=== PATIENT | female | born 1950 | race Caucasian/White ===

== ENCOUNTER 2022-06-15 09:32 | Day surgery (SDC) | payer MEDICARE, OTHER ==
[2022-06-15] VITALS (12 sets, daily range): BP systolic 106–143; BP diastolic 48–92; PULSE 65–79; TEMP 97.5–98.2
[~2022-06-15] VITALS: Ht 157.5 cm; Wt 95.3 kg
[~2022-06-15 09:32] MED LIST: ADVIL100 MG/5 M PO; ADVIL200 MG PO; ASPIRIN 32325 MG/TA1 PO; ASPIRIN 81M81 MG/TA2 PO; CALCIUM WITH D1 CTB PO; CALCIUM WITH VIT D PO; CARDI-OMEGA1000 MG PO; FISH OIL1000 MG PO; LASIX 20MG TABL20 MG PO; LASIX40 MG PO; METOPROLOL50 MG PO; MUCINEX D PO; MUCINEX DM 30 M1 TE1 PO; MULTIPLE VITAMI1 CAP PO; NITROQUICK0.4 MG SL; PHENTERMINE15 MG PO; PRAVASTATIN40 MG PO; PRILOSEC 20MG20 MG PO; RT SPIRIVA18 MCG IH; SPIRIVA INH IH; TOPROL XL 50MG50 MG PO; VITAMIN D1000 IU PO; VITAMIN D32000 IU PO
[2022-06-15] MEDS ORDERED: COREG12.5 MG PO (10:05)
[2022-06-15] MEDS ORDERED: TYLENOL 500MG500 MG PO (10:06)
[2022-06-15] MEDS ORDERED: ADVIL LIQUI-GE200 MG PO (10:07)
[2022-06-15] MEDS ORDERED: BIOTIN10000 MC1 PO (10:09)
[2022-06-15] MEDS ORDERED: ZETIA 10MG TAB10 MG PO (10:10)
[2022-06-15] MEDS ORDERED: ATARAX 25MG25 MG/TAB PO (10:10)
[2022-06-15] MEDS ORDERED: TRICOR145 MG PO (10:11)
[2022-06-15] MEDS ORDERED: SINGULAIR 110 MG/TAB PO (10:11)
[2022-06-15] MEDS ORDERED: FOLIC ACID 40400 MCG PO (10:12)
[2022-06-15] MEDS ORDERED: IRON TABLETS325 MG PO (10:12)
[2022-06-15] MEDS ORDERED: VITAMIN C500 MG PO (10:13)
[2022-06-15] MEDS ORDERED: STOOL SOFTENER100 M2 PO (10:13)
[2022-06-15] MEDS ORDERED: ASTELIN NASAL S34 ML NS (10:14)
[2022-06-15] MEDS ORDERED: FLONASEALLERGY NS (10:15)
[2022-06-15] MEDS ORDERED: ESTRACE0.1 MG/GM VG (10:15)
[2022-06-15] MEDS ORDERED: EPI-PEN JR0.5 MG/ML IM (10:16)
[2022-06-15] MEDS ORDERED: TEMOVATE OINT30 GM TOP (10:16)
--- NOTE | 2022-06-15 18:34 | NUR ---
PATIENT UP TO FLOOR AT 1530. PATIENT DENIES PAIN AT TIME OF ARRIVAL. DRESSING TO LEFT KNEE. ICE PACK APPLIED. POST OP VITALS GOING. CALL LIGHT WITHIN REACH.
--- NOTE | 2022-06-15 18:43 | NUR ---
PATIENT REQUESTED PAIN MEDS FOR LEFT SHOULDER AND LEFT KNEE PAIN. PATIENT RATES PAIN AT 7/10. FAHEEM 5MG ADMINISTERED. PATIENT RESTING IN BED WITH CALL LIGHT NEAR.
--- NOTE | 2022-06-15 19:26 | NUR ---
RECEIVED CHANGE OF SHIFT REPORT FROM DAY SHIFT RN.
--- NOTE | 2022-06-15 23:55 | NUR ---
PATIENT VOICES CONCERN REGARDING NOT HAVING SENSATION TO TOUCH TO FIRST 4 TOES TO LEFT FOOT WITH REPORTING FEELING TOUCH SENSATION TO L FOOT 5TH TOE. ABLE TO POINT L FOOT DOWN PER ANKLE BUT NOT ABLE TO FLEX L FOOT TOES UP AT ANKLE.
[2022-06-16 03:54] VITALS: BP 112/44; PULSE 72; TEMP 97.6
[2022-06-16 06:27] LABS: HEMATOCRIT 38.8 % (37.0-47.0); HEMOGLOBIN 13.2 g/dl (12.5-16.0)
--- NOTE | 2022-06-16 07:26 | NUR ---
CHANGE OF SHIFT REPORT GIVEN TO DAY SHIFT RNANIKA.
[2022-06-16] MEDS ORDERED: ASPI325T6 PO (07:28)
[2022-06-16] MEDS ORDERED: NAPROSYN500 MG PO (07:29)
[2022-06-16] MEDS ORDERED: ROXICODONE 55 MG/TAB PO (07:31)
[2022-06-16 07:53] VITALS: BP 121/50; PULSE 53; TEMP 98
[2022-06-16 11:45] VITALS: BP 114/44; PULSE 69; TEMP 97.9
== END 2022-06-16 15:28 | disposition home or self-care (01) ==
LOC: SDCO 09:32 → SURG 15:15 → SDCO 06-16 15:28
PROVIDERS: Orthopaedic Surgery
DX: M17.0 Bilateral primary osteoarthritis of knee (principal); G89.18 Other acute postprocedural pain; I10 Essential (primary) hypertension; G47.33 Obstructive sleep apnea (adult) (pediatric); K21.9 Gastro-esophageal reflux disease without esophagitis
CPT/HCPCS: OP; A9284; C1713; C1776; J0690; J1100; J2250; J2704; J2795; J7120